=== PATIENT | female | born 1930 | race Caucasian/White ===

== ENCOUNTER 2018-08-01 21:03 | Emergency (ER) | payer MEDICARE ==
--- OUTSIDE RECORDS SUMMARY | 2018-08-01 21:17 | XMS REPORT ---
:1930 External Reference #:[id number] Author Organization [facility] Address [address] [address] Phone [phone] Care Team Providers Name Role Phone Piyush Busch MD Primary Care Physician Unavailable Payers Type Date Identification Numbers Payment Provider Subscriber Commercial Effective: Policy Number: [id number] [employer] Seema Moreira 2017 Group Number: [id number] [id number] PayID: [id number] [place] [address] Problems Date Description Provider Status Onset: Hypercholesterolemia Active Onset: Irritable bowel syndrome Active Onset: H/O: depression Active Onset: Benign hypertension Active Onset: Acid reflux Active Onset: Anemia Active Onset: Contact dermatitis Active Onset: 10/18/2015 Nausea Richard Blancas MD Active Onset: 10/18/2015 Abdominal pain Richard Blancas MD Active Onset: 12/01/2015 Minimal cognitive impairment Piyush Busch Active MD Onset: 12/01/2015 Other cerebrovascular disease Piyush Busch Active Onset: 01/07/2016 Essential hypertension Piyush Busch Active MD Onset: 01/07/2016 Major depressive disorder, single Piyush Busch, Active episode, unspecified MD Onset: 01/07/2016 Cobalamin deficiency Piyush Busch Active Onset: 07/27/2016 Hyperlipidemia Piyush Busch Active Onset: 11/13/2016 Urinary tract infectious disease Richard Blancas MD Active Onset: 12/14/2016 Vitamin D deficiency Piyush Busch Active Onset: 12/14/2016 Adjustment disorder with depressed Piyush Busch Active mood MD Onset: 09/06/2017 Dyspnea Piyush Busch Active MD Onset: 12/06/2017 Hypothyroidism Piyush Busch Active MD Onset: 07/12/2018 Chronic obstructive lung disease Piyush Busch Active Onset: 07/12/2018 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 Allergies, Adverse Reactions, Alerts Date Description Reaction Status Severity Comments 10/13/2014 Flu Virus Vaccine active Nausea, cold sweats, diarrhea 12/14/2016 Aricept active irritability Medications Medication Date Status Form Strength Qnty SIG Indications Ordering Provider Lidocaine Active Patches 5% 30unit apply 1 B02.29 Stepkovitc 018 s patch to Piyush gifford MD area 12 hours on /12 hours off Duloxetine HCL Active Caps DR 60mg 90caps Take 1 F43.21 Stepkovitc 018 Part Capsule By Piyush gifford AT MD Eve Bedtime Atorvastatin Active Tablets 10mg 90tabs Take 1 I67.89 Stepkovitc Calcium 018 Tablet By Piyush gifford MD Every Day E78.5 Clopidogrel 05/09/2018 Active Tablets 75mg 90tabs Take 1 I67.89 Jo-Ann, Bisulfate Tablet By Piyush Prado MD Mouth Every Day E78.5 Mirtazapine 05/09/2018 Active Tablets 15mg 30tabs Take 1/2 F32.9 Jo-Ann, Tablet By Piyush Prado MD Mouth AT Bedtime F43.21 Quetiapine 03/02/2018 Active Tablets 25mg 120tabs take one F03.91 Jo-Ann, Fumarate tablet in Piyush Prado MD the morning, one tablet at noon, one tablet at bedtime, can use one a needed Diclofenac 02/27/2018 Active Gel 1% 1tube apply 4g to Jo-Ann Sodium the Piyush Prado MD affected area four times a day as needed Breo Ellipta 09/06/2017 Active Aerosol 100-2 60units 1 puff J44.9 Jo-Ann, 5mcg/ daily Piyush Prado MD Inh Proair HFA 09/06/2017 Active Aerosol 108(9 1units 1-2 puffs J44.9 Jo-Ann, 0Base q4 hour as Piyush Prado MD ) needed mcg/A ct Ferrous 12/14/2016 Active Tablets 325(6 90tabs 1 by mouth D64.9 Jo-Ann, Sulfate DR 5Fe) every day Piyush Prado MD mg Lisinopril 12/14/2016 Active Tablets 10mg 90tabs take 1 I10 Jo-Ann , tablet by Piyush Prado MD mouth every day Vitamin D-3 01/07/2016 Active Capsules 1000U 30caps 1 by mouth E55.9 Jo-Ann, nit every day Piyush Prado MD Cyanocobalamin 01/07/2016 Active Solution 1000m 450ml 1 D51.9 Jo-Ann cg/ML milliliters Piyush Prado MD intramuscul ar every month You Have A 03/20/2018 Hx you can not F03.91 Jo-Ann Memory Problem - live alone Piyush Prado MD And Need Help 05/09/2018 Cephalexin 03/05/2018 Hx Capsules 500mg 21caps 1 by mouth L03.90 Jo-Ann - 3 times a Piyush Prado MD 05/04/2018 day Seroquel 02/27/2018 Hx Tablets 25mg 30tabs take one Jo-Ann - tablet by Piyush Prado MD 02/27/2018 mouth at bedtime Quetiapine 02/27/2018 Hx Tablets 25mg 60tabs take 1/2 F03.91 Jo-Ann, Fumarate - tablet in Piyush Prado MD 03/02/2018 the morning and one tablet by mouth at bedtime, can use 1/2 tablet as needed for agitation Please Attend 12/06/2017 Hx [place], A Day Program - Piyush Prado MD AT [facility] 05/09/2018 Macrobid 11/13/2016 Hx Capsules 100mg 10caps 1 tab by Yonny, - mouth twice MD Richard 12/14/2016 a day for 5 days Amoxicillin 07/22/2016 Hx Tablets 500mg 30tabs 1 tab by Victorina Mittal, - mouth three M.D. 11/13/2016 times a day Abilify 05/13/2016 Hx Tablets 2mg 30tabs take one po F32.9 Jo-Ann, - daily Piyush Prado MD 12/14/2016 Amoxicillin 04/23/2016 Hx Tablets 500mg 30tabs 1 by mouth Felter, - every 8 MD Josh 04/24/2016 hours Remeron 04/19/2016 Hx Tablets 15mg 30tabs Take 1/2 F32.9 Jo-Ann, - Tablet By Piyush Prado MD 05/09/2018 Mouth AT Bedtime F43.21 Cymbalta 02/09/2016 - Hx Caps DR 60mg 90caps Take 1 F43.21 Jo-Ann, 05/09/2018 Part Capsule By Piyush Prado MD Mouth AT Bedtime Penicillin V 01/27/2016 - Hx Tablets 500mg 30tabs Take 1 K12.2 Eros Saleh Potassium 04/19/2016 tablet by Ag DAntonioOAntonio mouth three (3) times a day. Lipitor 01/07/2016 - Hx Tablets 10mg 90tabs Take 1 I67.89 Jo-Ann, 05/09/2018 Tablet By Piyush Prado MD Mouth Every Day E78.5 Lisinopril 12/01/2015 - Hx Tablets 5mg 60tabs take 2 by I10 Jo-Ann , 12/14/2016 mouth Piyush Prado MD every day Paxil 12/01/2015 - Hx Tablets 20mg 1 by mouth Jo-Ann, 12/01/2015 every day Piyush Prado MD Aricept 12/01/2015 - Hx Tablets 5mg 90tabs 1 by mouth G31.84 Jo-Ann, 11/13/2016 every day Piyush Prado MD Paroxetine HCL 12/01/2015 - Hx Tablets 10mg 60tabs 1 and 1/2 F32.9 [place], 02/10/2016 by mouth Piyush Prado MD every day for 2 weeks then take one every day for 2 weeks then take 1/2 tablet po daily for 2 weeks Cymbalta 12/01/2015 - Hx Caps DR 20mg 60caps take 2 by G31.84 Jo-Ann, 02/09/2016 Part mouth at Piyush Prado MD bedtime F32.9 Plavix 12/01/2015 - Hx Tablets 75mg 90tabs Take 1 Tablet I67.89 Jo-Ann, 05/09/2018 By Mouth Piyush Prado MD Every Day E78.5 Ondansetron HCL 10/18/2015 - Hx Tablets 4mg 20tabs 1 tab by Yonny, 12/01/2015 mouth three MD Richard times a day as needed for nausea and vomiting Cipro 09/16/2015 - Hx Tablets 500mg 20tabs 1 by mouth R10 Juan Manuel, 09/24/2015 twice a day .81 MD Josh 4 Flagyl 09/16/2015 - Hx Tablets 500mg 28tabs 1 by mouth R10 Juan Manuel, 09/24/2015 four times .81 MD Josh a day 4 Amoxicillin 08/28/2015 - Hx Tablets 500mg 30tabs 1 by mouth Juan Manuel, 09/04/2015 every 8 MD Josh hours Lipitor - Hx Tablets 30tabs 1 by mouth Unknown 12/01/2015 every day Paxil - Hx Tablets 30tabs 1 by mouth Unknown 12/01/2015 every day Lisinopril - Hx Tablets 30tabs 1 by mouth Unknown 12/01/2015 every day Hydrochlorothiazide - Hx Tablets 90tabs 1 by mouth Unknown 12/01/2015 every day Aspirin Ec - Hx Tablets DR 81mg OTC 1 by mouth Unknown 09/16/2015 every day Pepcid Complete - Hx 2 by mouth Unknown 08/28/2015 every day as needed Plavix - Hx Unknown 12/01/2015 Vital Signs Date Vital Result Comment 07/12/2018 Body Temperature 96.9 F Weight 99.12 lb Heart Rate 63 /min BP Systolic 122 mmHg BP Diastolic 80 mmHg Height 61 inches 5'1" O2 % BldC Oximetry 98 % BMI (Body Mass Index) 18.7 kg/m2 03/20/2018 Body Temperature 97.7 F Weight 102.00 lb Heart Rate 88 /min BP Systolic 102 mmHg BP Diastolic 60 mmHg Height 61 inches 5'1" O2 % BldC Oximetry 97 % BMI (Body Mass Index) 19.3 kg/m2 03/05/2018 Body Temperature 98.1 F Weight 102.00 lb Heart Rate 81 /min BP Systolic 120 mmHg BP Diastolic 70 mmHg Height 61 inches 5'1" O2 % BldC Oximetry 98 % BMI (Body Mass Index) 19.3 kg/m2 02/27/2018 Body Temperature 98.3 F Weight 102.00 lb Heart Rate 88 /min BP Systolic 140 mmHg BP Diastolic 80 mmHg Height 61 inches 5'1" O2 % BldC Oximetry 97 % BMI (Body Mass Index) 19.3 kg/m2 12/06/2017 Body Temperature 97.4 F Weight 104.38 lb Heart Rate 77 /min BP Systolic 122 mmHg BP Diastolic 70 mmHg Height 61 inches 5'1" O2 % BldC Oximetry 97 % BMI (Body Mass Index) 19.7 kg/m2 Urine Dipstick - Blood neg ph=5 SG=1.030 Urine Dipstick - Protein +1 Urine Dipstick - Glucose neg Urine Dipstick - Leukocytes +1 Right Visual Acuity Distance Dr Barakat 09/06/2017 Body Temperature 97.2 F Weight 102.25 lb Heart Rate 76 /min BP Systolic 128 mmHg BP Diastolic 78 mmHg Height 61 inches 5'1" O2 % BldC Oximetry 98 % BMI (Body Mass Index) 19.3 kg/m2 04/26/2017 Body Temperature 98.3 F Weight 98.25 lb Heart Rate 72 /min BP Systolic 104 mmHg BP Diastolic 80 mmHg Height 61 inches 5'1" O2 % BldC Oximetry 96 % BMI (Body Mass Index) 18.6 kg/m2 12/14/2016 Body Temperature 98.0 F Weight 102.00 lb Heart Rate 74 /min BP Systolic 120 mmHg BP Diastolic 84 mmHg Height 61 inches 5'1" O2 % BldC Oximetry 95 % BMI (Body Mass Index) 19.3 kg/m2 Urine Dipstick - Blood NEGATIVE PH 5 SG 1.030 Urine Dipstick - Protein 1+ Urine Dipstick - Glucose NEGATIVE Urine Dipstick - Leukocytes 1+ Left ear audiology results 25 db <25db loss at 500,2000,4000 >25db loss at 1000 Right ear audiology results 25 db <25db loss at 500,2000 >25db loss at 1000, 4000 11/13/2016 Body Temperature 98.5 F Respiratory Rate 18 /min 07/27/2016 Body Temperature 98.0 F Weight 103.25 lb Heart Rate 72 /min BP Systolic 150 mmHg BP Diastolic 76 mmHg Height 64 inches 5'4" BMI (Body Mass Index) 17.7 kg/m2 07/22/2016 Body Temperature 97.7 F Weight 95.00 lb Heart Rate 86 /min BP Systolic 120 mmHg BP Diastolic 76 mmHg Respiratory Rate 20 /min Height 64 inches 5'4" BMI (Body Mass Index) 16.3 kg/m2 04/23/2016 Weight 95.00 lb BP Systolic 122 mmHg BP Diastolic 76 mmHg Respiratory Rate 20 /min Height 64 inches 5'4" BMI (Body Mass Index) 16.3 kg/m2 04/19/2016 Body Temperature 97.7 F Weight 95.50 lb Heart Rate 100 /min BP Systolic 116 mmHg BP Diastolic 64 mmHg Height 64 inches 5'4" BMI (Body Mass Index) 16.4 kg/m2 02/10/2016 Body Temperature 97.4 F Weight 100.50 lb Heart Rate 92 /min BP Systolic 140 mmHg BP Diastolic 70 mmHg Height 64 inches 5'4" BMI (Body Mass Index) 17.2 kg/m2 01/27/2016 Body Temperature 97.6 F Weight 105.00 lb Heart Rate 73 /min BP Systolic 129 mmHg BP Diastolic 79 mmHg Respiratory Rate 16 /min Height 64 inches 5'4" BMI (Body Mass Index) 18.0 kg/m2 01/07/2016 Body Temperature 98.1 F Weight 104.00 lb Heart Rate 75 /min BP Systolic 128 mmHg BP Diastolic 70 mmHg Height 63.5 inches 5'3.50" O2 % BldC Oximetry 95 % BMI (Body Mass Index) 18.1 kg/m2 12/01/2015 Weight 105.25 lb Heart Rate 66 /min BP Systolic 122 mmHg BP Diastolic 80 mmHg Height 63.5 inches 5'3.50" O2 % BldC Oximetry 97 % BMI (Body Mass Index) 18.3 kg/m2 10/18/2015 Body Temperature 96.7 F Respiratory Rate 18 /min 09/16/2015 Body Temperature 97.0 F Heart Rate 76 /min BP Systolic 119 mmHg BP Diastolic 76 mmHg 08/28/2015 Body Temperature 97.6 F Heart Rate 68 /min BP Systolic 128 mmHg BP Diastolic 72 mmHg Respiratory Rate 20 /min Results Test Date Test Result H/L Range Note CBS W/Automated Diff 07/04/2018 White Blood Count 5.1 K/uL 3.1-10.7 1 Red Blood Count 3.82 M/uL Low 3.90-5.40 1 Hemoglobin 10.7 gm/dL Low 11.6-15.8 1 Hematocrit 34.6 % Low 36.0-46.1 1 Mean Cell Volume 90.6 fl 80.9-99.0 1 Mean Corpuscular HGB 28.0 pg 25.9-32.7 1 Mean Corpuscular HGB Conc 30.9 g/dL 30.8-34.3 1 Platelet Count 231 K/uL 155-360 1 Red Cell Distri Width SD 45.1 fl 3-47 1 Red Cell Distri Width %CV 14.2 % 11.7-14.4 1 Mean Platelet Volume 9.8 fL 8.9-12.4 1 Neut% 65.4 % 40.4-72.8 1 Lymph % 17.8 % Low 20.0-42.0 1 [place] % 8.8 % 4.3-13.2 1 Eo% 7.4 % High 0.0-6.6 1 Bas% 0.6 % 0.0-1.1 1 Neut# 3.34 K/uL 1.8-7.0 1 Lymph # 0.91 K/uL Low 1.0-4.0 1 [place] # 0.45 K/uL 0.3-0.9 1 Eos # 0.38 K/uL 0.0-0.5 1 Baso # 0.03 K/uL 0.0-0.1 1 Liver Function Tests 07/04/2018 Total Protein 7.2 g/dL 6.4-8.2 1 Albumin 3.2 g/dL Low 3.4-5.0 1 Globulin 4.0 g/dL 1.9-4.3 1 Alb/Glob 0.8 ratio 1 Bilirubin,Total 0.5 mg/dL 0.2-1.0 1 Bilirubin,Direct 0.2 mg/dL 0.0-0.2 1 Bilirubin,Indirect 0.3 mg/dL 0.0-0.9 1 Sgot/Ast 15 U/L 15-37 1 SGPT/Alt 18 U/L 12-78 1 Alkaline Phosphatase 108 U/L 45-117 1 Basic Metabolic Panel 07/04/2018 Glucose 82 mg/dL 74-106 1 BUN 19 mg/dL High 7-18 1 Creatinine 1.2 mg/dL 0.6-1.3 1 Glom Filtration Rate, Estimate 45 mL/min >60 1 If 55 mL/min >60 1, 2 BUN/Creat 15.8 ratio 1 Sodium 144 mmol/L 136-145 1 Potassium 4.1 mmol/L 3.5-5.1 1 Chloride 110 mmol/L High 98-107 1 Carbon Dioxide 29 mmol/L 21-32 1 Anion Gap 5 mEq/L Low 8-16 1 Calcium 8.6 mg/dL 8.5-10.1 1 LDL Cholesterol Profile 07/04/2018 Cholesterol 137 mg/dL <200 1, 3 Triglycerides 92 mg/dL <150 1, 4 HDL Cholesterol 58 mg/dL >40 1, 5 LDL-Cholesterol 61 mg/dL < 100 1, 6 Lipid Treatment 12/04/2017 Cholesterol 156 mg/dL 50-199 7 Triglycerides 107 mg/dL 30-200 7 HDL 43 mg/dL 35-85 7, 8 Chol/ HDL Ratio 3.6 ratio Low 3.7-5.6 7 VLDL 21 mg/dL 2-29 7 LDL (Calc) 91 mg/dL 20-99 7, 9 Alt 8 U/L 3-42 7 Ast 16 U/L 8-42 7 Basic (BMP) 12/04/2017 Sodium 144 mmol/L 135-146 7, 10 Potassium 4.4 mmol/L 3.5-5.2 7 Chloride# 109 mmol/L 97-110 7, 11 Carbon Dioxide 29 mmol/L 24-34 7 Glucose 98 mg/dL 70-105 7 BUN 15 mg/dL 6-26 7 Creatinine 1.1 mg/dL 0.5-1.4 7 Calcium 9.0 mg/dL 8.5-10.2 7 Non Deja Egfr 50 Low >60 7, 12 Deja Egfr 60 Low >60 7, 13 Anion Gap 6 mmol/L 5-15 7, 14 CBC With Auto Diff 12/04/2017 WBC 5.0 K/uL 4.1-11.0 7 RBC 3.83 M/uL Low 4.00-5.40 7 Hemoglobin 11.4 gm/dL Low 12.0-16.0 7 Hematocrit 33.3 % Low 36.0-47.0 7 MCV 87.1 fL 80.0-97.0 7 MCH 29.8 pg 27.0-32.0 7 MCHC 34.2 g/dL 32.0-36.0 7 RDW 13.9 % 11.5-14.5 7 PLT Count 182 K/ul 140-400 7 MPV 7.8 FL 7.1-10.7 7 Neutrophil 65.6 % 35.0-75.0 7 Lymphocyte 15.6 % Low 16.0-52.0 7 Monocyte 11.1 % High 2.0-10.0 7 Eosinophil 6.5 % High 0.0-5.0 7 Basophil 1.2 % 0.0-4.0 7 Abs Neutrophils 3.2 K/uL 2.1-8.0 7 Abs Lymphocytes 0.8 K/uL 0.8-5.5 7 Abs Monocytes 0.6 K/uL 0.1-1.0 7 Abs Eosinophils 0.3 K/uL 0.0-0.5 7 Abs Basophils 0.1 K/uL 0.0-0.3 7 Laboratory test finding 12/04/2017 TSH 3.07 uIU/mL 0.35-4.94 7 Vitamin B12 262 pg/mL 180-914 7 Vitamin D 25 Hydroxy 39 ng/mL 30-100 7, 15 Methylmalonic Acid 09/06/2017 Methylmalonic Acid 0.29 umol/L 16 Iron Panel 09/06/2017 Iron,Total @ 41 g/dL (35-150) Uibc @ 224 g/dL (130-375) Tibc @ 265 g/dL (250-450) % Saturation 15 % (12-50) Hepatic Function 09/06/2017 Total Protein 7.2 g/dL (6.4-8.2) Albumin 3.6 g/dL (3.2-4.5) Globulin 3.6 g/dL (2.7-4.3) Alb/Glob Ratio 1.0 RATIO Bilirubin,Total 0.4 mg/dL (0.0-1.0) Bilirubin,Conjugated 0.1 mg/dL (0.0-0.3) Bilirubin,Unconj. 0.3 mg/dL (0.0-0.7) Alkaline Phosphatase 91 U/L (45-117) Ast (Sgot) 15 U/L (11-39) Alt (SGPT) 17 U/L (12-78) CBC With Diff 09/06/2017 WBC 6.2 10*3/uL (4.1-11.0) RBC 3.96 10*6/uL Low (4.00-5.40) HGB 11.3 g/dL Low (12.0-16.0) HCT 34.4 % Low (36.0-47.0) MCV 86.9 fL (80.0-95.0) MCH 28.6 pg (27.0-32.0) MCHC 32.9 g/dL (32.0-36.0) RDW 14.4 % (10.5-14.5) PLT 201 10*3/uL (150-450) MPV 8.4 fL (7.1-10.7) Neut % 64.2 % (35.0-75.0) Lymph % 18.8 % (16.0-52.0) [place] % 13.2 % High (0.0-8.0) Eos % 2.8 % (0.0-5.0) Baso % 1.0 % (0.0-4.0) Neut # 4.0 10*3/uL (1.8-7.7) Lymph # 1.2 10*3/uL (1.2-4.8) [place] # 0.8 10*3/uL (0.0-0.8) Eos # 0.2 10*3/uL (0.0-0.5) Baso # 0.1 10*3/uL (0.0-0.2) Laboratory test finding 09/06/2017 Ferritin @ 49 ng/mL (8-252) BMP (Basic) 09/06/2017 Sodium 144 mmol/L (136-145) Potassium 4.6 mmol/L (3.6-5.2) Chloride 110 mmol/L High (100-108) Co2 26 mmol/L (22-31) Anion Gap 8 mmol/L (7-16) Urea Nitrogen 20 mg/dL (7-24) Creatinine 1.20 mg/dL High (0.60-1.00) BUN/Creat Ratio 16.7 RATIO (10.0-20.0) Glucose 74 mg/dL (70-99) Calcium 8.8 mg/dL (8.4-10.2) GFR 43 ml/min/1.73m2 Low (>59) GFR ( Amer) 52 ml/min/1.73m2 Low (>59) GFR Interpretation <SEE NOTE> 17 Laboratory test finding 09/06/2017 Vitamin B12 @ 338 pg/mL (193-986) Iron Panel 04/26/2017 Iron, Total 83 g/dL 50-170 Transferrin 216.0 mg/dL 203.0-362.0 Tibc (calc) 302 g/dL 261-478 % Iron Saturation 27.4 % 13.0-45.0 Laboratory test finding 04/26/2017 Ferritin 50.3 ng/ml 11.0-306.0 Vitamin B12 272 pg/mL 180-914 1 Urinalysis DIP (In-House) 12/14/2016 Z#Color maria ines Z#Appearance sl cloudy Urine,Leukocytes 1+ Nitrite negative Urobilinogen negative Urine,Protein 1+ Z#PH Urine 5 Z#Blood, Urine negative Z#Specific [place] 1.030 Z#Ketones Urine negative Z#Bili,Urine negative Z#Glu Urine negative Lipid Treatment 12/05/2016 Cholesterol 160 mg/dL 50-199 Triglycerides 158 mg/dL 30-200 HDL 45 mg/dL 35-85 18 Chol/ HDL Ratio 3.5 ratio Low 3.7-5.6 VLDL 32 mg/dL High 2-29 LDL (Calc) 83 mg/dL 20-99 19 Alt 7 U/L 3-42 Ast 15 U/L 8-42 Basic (BMP) 12/05/2016 Sodium 144 mmol/L 135-146 20 Potassium 3.7 mmol/L 3.5-5.2 Chloride# 107 mmol/L 97-110 21 Carbon Dioxide 28 mmol/L 24-34 Glucose 100 mg/dL 70-105 BUN 14 mg/dL 6-26 Creatinine 1.3 mg/dL 0.5-1.4 Calcium 9.3 mg/dL 8.5-10.2 Non Deja Egfr 41 Low >60 22 Deja Egfr 49 Low >60 23 Anion Gap 13 mmol/L 7-16 24 CBC With Auto Diff 12/05/2016 WBC 7.1 K/uL 4.1-11.0 RBC 4.18 M/uL 4.00-5.40 Hemoglobin 12.0 gm/dL 12.0-16.0 Hematocrit 36.4 % 36.0-47.0 MCV 87.0 fL 80.0-97.0 MCH 28.8 pg 27.0-32.0 MCHC 33.1 g/dL 32.0-36.0 RDW 14.3 % 11.5-14.5 PLT Count 233 K/ul 140-400 Neutrophil 66.1 % 35.0-75.0 Lymphocyte 17.6 % 16.0-52.0 Monocyte 10.0 % 2.0-10.0 Eosinophil 5.1 % High 0.0-5.0 Basophil 1.2 % 0.0-4.0 Abs Neutrophils 4.7 K/uL 2.1-8.0 Abs Lymphocytes 1.3 K/uL 0.8-5.5 Abs Monocytes 0.7 K/uL 0.1-1.0 Abs Eosinophils 0.4 K/uL 0.0-0.5 Abs Basophils 0.1 K/uL 0.0-0.3 Laboratory test finding 12/05/2016 TSH 2.24 uIU/mL 0.35-4.94 Free T4 0.89 ng/dL 0.70-1.48 Vitamin B12 277 pg/mL 180-914 Vit D,25 Hydroxy 43 ng/mL 31-100 Laboratory test finding 11/13/2016 Urine Culture SPECIMEN DESCRI> 25 CBC With Auto Diff 08/22/2016 WBC 5.3 K/uL 4.1-11.0 RBC 4.10 M/uL 4.00-5.40 Hemoglobin 11.6 gm/dL Low 12.0-16.0 Hematocrit 35.3 % Low 36.0-47.0 MCV 86.3 fL 80.0-97.0 MCH 28.4 pg 27.0-32.0 MCHC 32.9 g/dL 32.0-36.0 RDW 14.7 % High 11.5-14.5 PLT Count 225 K/ul 140-400 Neutrophil 58.7 % 35.0-75.0 Lymphocyte 21.6 % 16.0-52.0 Monocyte 13.1 % High 2.0-10.0 Eosinophil 5.6 % High 0.0-5.0 Basophil 1.0 % 0.0-4.0 Abs Neutrophils 3.1 K/uL 2.1-8.0 Abs Lymphocytes 1.1 K/uL 0.8-5.5 Abs Monocytes 0.7 K/uL 0.1-1.0 Abs Eosinophils 0.3 K/uL 0.0-0.5 Abs Basophils 0.1 K/uL 0.0-0.3 CBC With Auto Diff 07/27/2016 WBC 5.7 K/uL 4.1-11.0 RBC 3.91 M/uL Low 4.00-5.40 Hemoglobin 10.9 gm/dL Low 12.0-16.0 Hematocrit 33.0 % Low 36.0-47.0 MCV 84.2 fL 80.0-97.0 MCH 27.8 pg 27.0-32.0 MCHC 33.0 g/dL 32.0-36.0 RDW 14.1 % 11.5-14.5 PLT Count 203 K/ul 140-400 Neutrophil 70.0 % 35.0-75.0 Lymphocyte 14.8 % Low 16.0-52.0 Monocyte 9.3 % 2.0-10.0 Eosinophil 4.8 % 0.0-5.0 Basophil 1.1 % 0.0-4.0 Abs Neutrophils 4.0 K/uL 2.1-8.0 Abs Lymphocytes 0.8 K/uL 0.8-5.5 Abs Monocytes 0.5 K/uL 0.1-1.0 Abs Eosinophils 0.3 K/uL 0.0-0.5 Abs Basophils 0.1 K/uL 0.0-0.3 Basic (BMP) 07/27/2016 Sodium 141 mmol/L 134-142 Potassium 4.1 mmol/L 3.5-5.2 Chloride 108 mmol/L 97-109 Carbon Dioxide 31 mmol/L 24-34 Glucose 81 mg/dL 70-105 BUN 14 mg/dL 6-26 Creatinine 1.0 mg/dL 0.5-1.4 Calcium 9.3 mg/dL 8.5-10.2 Anion Gap 6 mmol/L 6-14 Non Deja Egfr 55 Low >60 26 Deja Egfr >60 >60 27 Hepatic Panel (LFT) 07/27/2016 Total Protein 6.6 g/dL 6.0-8.0 Albumin 3.6 g/dL 3.6-4.9 Total Bilirubin 0.6 mg/dL 0.1-1.3 Direct Bilirubin 0.1 mg/dL 0.0-0.4 Alkaline Phosphatase 86 U/L 24-140 Alt 11 U/L 3-42 Ast 17 U/L 8-42 Laboratory test finding 07/27/2016 Vit D,25 Hydroxy 43 ng/mL 31-100 Vitamin B12 322 pg/mL 180-914 TSH 1.63 uIU/mL 0.35-4.94 Ferritin 19.2 ng/ml 11.0-306.0 Iron Panel 07/27/2016 Iron, Total 101 g/dL 50-170 Transferrin 235.7 mg/dL 203.0-362.0 Tibc (calc) 330 g/dL 261-478 % Iron Saturation 30.6 % 13.0-45.0 Laboratory test 12/10/2015 Methylmalonic Acid (S) 0.21 umol/L (0.00-0.40 ) 28 finding Laboratory test 12/10/2015 Folate >24.2 ng/ml 5.9-24.8 finding TSH 1.64 uIU/mL 0.35-4.94 CBC With Auto Diff 12/10/2015 WBC 5.3 K/uL 4.1-11.0 RBC 4.12 M/uL 4.00-5.40 Hemoglobin 11.7 gm/dL Low 12.0-16.0 Hematocrit 36.2 % 36.0-47.0 MCV 87.8 fL 80.0-97.0 MCH 28.4 pg 27.0-32.0 MCHC 32.4 g/dL 32.0-36.0 RDW 13.8 % 11.5-14.5 PLT Count 214 K/ul 140-400 Neutrophil 63.1 % 35.0-75.0 Lymphocyte 21.5 % 16.0-52.0 Monocyte 11.1 % High 2.0-10.0 Eosinophil 3.5 % 0.0-5.0 Basophil 0.8 % 0.0-4.0 Abs Neutrophils 3.3 K/uL 2.1-8.0 Abs Lymphocytes 1.1 K/uL 0.8-5.5 Abmon 0.6 K/uL 0.1-1.0 Abs Eosinophils 0.2 K/uL 0.0-0.5 Abs Basophils 0.0 K/uL 0.0-0.3 Laboratory test finding 12/10/2015 Vitamin B12 434 pg/mL 180-914 Basic (BMP) 12/10/2015 Sodium 139 mmol/L 134-142 Potassium 4.1 mmol/L 3.5-5.2 Chloride 104 mmol/L 97-109 Carbon Dioxide 27 mmol/L 24-34 Glucose 96 mg/dL 70-105 BUN 15 mg/dL 6-26 Creatinine 1.1 mg/dL 0.5-1.4 Calcium 9.0 mg/dL 8.5-10.2 Anion Gap 12 mmol/L 6-14 Non Deja Egfr 49 Low >60 29 Deja Egfr 59 Low >60 30 Lipid Treatment 12/10/2015 Cholesterol 209 mg/dL High 50-199 Triglycerides 120 mg/dL 30-200 HDL 49 mg/dL 35-85 31 Chol/ HDL Ratio 4.3 ratio 3.7-5.6 VLDL 24 mg/dL 2-29 LDL (Calc) 136 mg/dL High 20-99 32 Alt 10 U/L 3-42 Ast 16 U/L 8-42 Laboratory test finding 09/16/2015 Urine Culture SPECIMEN DESCRI> 33 1 E78.5, I10 2 Note: Persistent reduction for 3 months or more in an eGFR <60 mL/min/1.73 m2 defines CKD. Patients with eGFR values >/=60 mL/min/1.73 m2 may also have CKD if evidence of persistent proteinuria is present. The original MDRD equation for estimated GFR is not valid for patients less than 18 years of age. Additional information may be found at [email or web address]. 3 Reference Guidelines*: Desirable: ........... < 200 mg/dL Borderline High: ..... 200-239 mg/dL High: ................ >=240 mg/dL * The National Cholesterol Education Program (NCEP) 4 Reference Guidelines*: Normal: ............. < 150 mg/dL Borderline High: .... 150-199 mg/dL High: ............... 200-499 mg/dL Very High: .......... > 500 mg/dL * Source: National Cholesterol Education Program (NCEP) 5 Reference Guidelines*: Low HDL: ..... < 40 mg/dL Normal: ..... 40-60 mg/dL Desirable: ... > 60 mg/dL *The National Cholesterol Education Program(NCEP) 6 Reference Guidelines*: Optimal:........... <100 mg/dL Near Optimal....... 100-129 mg/dL Borderline High.... 130-159 mg/dL High............... 160-189 mg/dL Very High.......... >=190 mg/dL * Source: National Cholesterol Education Program (NCEP) 7 patient broke fast 8 Per NCEP ATP III Guidelines: Results lower than 40 mg/dL are suggestive of increased risk for coronary artery disease. Results > or=to 60 mg/dL are considered a negative risk factor. 9 Per NCEP ATP III Guidelines: Normal Population <130 Patients with medical conditions: CHD/DM Optimal: <100 Borderline high: 130-159 High: 160-189 Very high: >189 10 Updated reference range on new analyzer 11 Updated reference range on new analyzer 12 Concerning GFR Guidelines: Normal function or mild renal disease, if clinically at risk: >/=60 mL/min Moderately decreased: 30-59 Severely decreased: 15-29 Renal failure: <15 Glomerular Filtration Rate (GFR) is estimated based on the MDRD equation, which assumes a steady state for creatinine as recommended by the National Kidney Disease Education Program in conjunction with the National Institutes of Health and the National Kidney Foundation. Clinical conditions in which it may be necessary to measure GFR by using clearance methods include extremes of age and body size, severe malnutrition or obesity, diseases of skeletal muscle, paraplegia or quadriplegia, vegetarian diet, rapidly changing kidney function, and calculation of the dose of potentially toxic drugs that are excreted by the kidneys. 13 Concerning GFR Guidelines for Americans: Normal function or mild renal disease, if clinically at risk: >/=60 mL/min Moderately decreased: 30-59 Severely decreased: 15-29 Renal failure: <15 14 Updated Reference Range 15 Clinical Guidelines for recommended serum 25(OH)Vitamin D Deficient at less than 20 ng/mL Insufficient at 20 to <30 ng/mL Sufficient at 30-100 ng/mL Toxicity at greater than 100 ng/mL 16 Reference range: 0.00 to 0.40 INTERPRETIVE INFORMATION: MMA Serum/Plasma, Vitamin B12 Status Test developed and characteristics determined by [facility]. See Compliance Statement B: [employer]/CS Performed by [facility], [address] [facility] [address] [email or web address], Ray rCum MD, Lab. Director 17 NORMAL KIDNEY FUNCTION OR MILD DISEASE - GFR >OR=60 CHRONIC KIDNEY DISEASE - GFR 15 - 59 RENAL FAILURE - GFR <15 Est. GFR calculation based on the MDRD study equation, which assumes a steady state for creatinine. Est. GFR should not be used for medication dosing. 18 Per NCEP ATP III Guidelines: Results lower than 40 mg/dL are suggestive of increased risk for coronary artery disease. Results > or=to 60 mg/dL are considered a negative risk factor. 19 Per NCEP ATP III Guidelines: Normal Population <130 Patients with medical conditions: CHD/DM Optimal: <100 Borderline high: 130-159 High: 160-189 Very high: >189 20 Updated reference range on new analyzer 21 Updated reference range on new analyzer 22 Concerning GFR Guidelines: Normal function or mild renal disease, if clinically at risk: >/=60 mL/min Moderately decreased: 30-59 Severely decreased: 15-29 Renal failure: <15 Glomerular Filtration Rate (GFR) is estimated based on the MDRD equation, which assumes a steady state for creatinine as recommended by the National Kidney Disease Education Program in conjunction with the National Institutes of Health and the National Kidney Foundation. Clinical conditions in which it may be necessary to measure GFR by using clearance methods include extremes of age and body size, severe malnutrition or obesity, diseases of skeletal muscle, paraplegia or quadriplegia, vegetarian diet, rapidly changing kidney function, and calculation of the dose of potentially toxic drugs that are excreted by the kidneys. 23 Concerning GFR Guidelines for Americans: Normal function or mild renal disease, if clinically at risk: >/=60 mL/min Moderately decreased: 30-59 Severely decreased: 15-29 Renal failure: <15 24 Updated reference range on new analyzer 25 SPECIMEN DESCRIPTION MIDSTREAM URINE,CLEAN CATCH CULTURE RESULTS MIXED UROGENITAL SHEREEN; PLEASE SUBMIT A NEW SPEC IMEN IF CLINICALLY INDICATED. REPORT STATUS FINAL 11/14/2016 26 Concerning GFR Guidelines: Normal function or mild renal disease, if clinically at risk: >/=60 mL/min Moderately decreased: 30-59 Severely decreased: 15-29 Renal failure: <15 Glomerular Filtration Rate (GFR) is estimated based on the MDRD equation, which assumes a steady state for creatinine as recommended by the National Kidney Disease Education Program in conjunction with the National Institutes of Health and the National Kidney Foundation. Clinical conditions in which it may be necessary to measure GFR by using clearance methods include extremes of age and body size, severe malnutrition or obesity, diseases of skeletal muscle, paraplegia or quadriplegia, vegetarian diet, rapidly changing kidney function, and calculation of the dose of potentially toxic drugs that are excreted by the kidneys. 27 Concerning GFR Guidelines for Americans: Normal function or mild renal disease, if clinically at risk: >/=60 mL/min Moderately decreased: 30-59 Severely decreased: 15-29 Renal failure: <15 28 PLEASE NOTE: METHOD IS LC/MS/MS Unless otherwise specified, testing performed by [facility] [address] [place] [id number] 29 Concerning GFR Guidelines: Normal function or mild renal disease, if clinically at risk: >/=60 mL/min Moderately decreased: 30-59 Severely decreased: 15-29 Renal failure: <15 Glomerular Filtration Rate (GFR) is estimated based on the MDRD equation, which assumes a steady state for creatinine as recommended by the National Kidney Disease Education Program in conjunction with the National Institutes of Health and the National Kidney Foundation. Clinical conditions in which it may be necessary to measure GFR by using clearance methods include extremes of age and body size, severe malnutrition or obesity, diseases of skeletal muscle, paraplegia or quadriplegia, vegetarian diet, rapidly changing kidney function, and calculation of the dose of potentially toxic drugs that are excreted by the kidneys. 30 Concerning GFR Guidelines for Americans: Normal function or mild renal disease, if clinically at risk: >/=60 mL/min Moderately decreased: 30-59 Severely decreased: 15-29 Renal failure: <15 31 Per NCEP ATP III Guidelines: Results lower than 40 mg/dL are suggestive of increased risk for coronary artery disease. Results > or=to 60 mg/dL are considered a negative risk factor. 32 Per NCEP ATP III Guidelines: Normal Population <130 Patients with medical conditions: CHD/DM Optimal: <100 Borderline high: 130-159 High: 160-189 Very high: >189 33 SPECIMEN DESCRIPTION MIDSTREAM URINE,CLEAN CATCH CULTURE RESULTS MIXED UROGENITAL SHEREEN; PLEASE SUBMIT A NEW SPEC IMEN IF CLINICALLY INDICATED. REPORT STATUS FINAL 09/18/2015 Procedures Date CPT Code Description Status 12/06/2017 76806 Electrocardiogram Complete Completed 09/06/2017 41426 Spirometry /PFT W/O Bronchodialator Completed 12/14/2016 22518 Electrocardiogram Complete Completed 12/14/2016 26943 Screening Hearing Test Completed Encounters Type Date Location Provider CPT E/M Dx Office Visit 03/20/2018 2:15p [facility] [place] [address]88 F03.91 MD Eve Busch MD Office Visit 03/05/2018 3:15p [facility] [place] 72879 L03.90 MD Eve Busch MD F03.91 Office Visit 12/06/2017 3:30p [facility] G0439 Z00.00 MD Eve Busch MD E78.5 I10 D51.9 E55.9 F43.21 G31.84 I67.89 Office Visit 09/06/2017 4:45p Piyush Patterson 04369 D51.9 MD Eve Busch MD I10 E78.5 E55.9 G31.84 F43.21 R06.02 D64.9 I67.89 J44.9 Office Visit 04/26/2017 4:00p Piyush Patterson 24639 D51.9 MD Eve Busch MD I10 E78.5 E55.9 G31.84 F43.21 Office Visit 12/14/2016 2:30p Cami [facility] G0439 Z00.00 MD Eve Busch MD I10 E78.5 D51.9 E55.9 G31.84 F43.21 Office Visit 11/13/2016 9:55a [place] [address] R10.9 N39.0 Office Visit 07/27/2016 11:30a Jo-Ann Patterson [place] 86973 I10 MD Eve MD D51.9 G31.84 F32.9 I67.89 E78.5 E55.9 Office Visit 07/22/2016 2:05p [facility] Victorina Mckeon M.D. 09461 K08.89 Office Visit 04/23/2016 11:50a [place] [address] K12.2 Office Visit 04/19/2016 3:30p Jo-Ann Patterson, 76031 I10 MD Piyush Prado MD D51.9 G31.84 F32.9 Office Visit 02/10/2016 10:15a [facility] [place] 83833 R35.0 MD Eve Busch MD Office Visit 01/27/2016 3:20p [facility] Eros Luo, 05352 K12.2 D.O. Office Visit 01/07/2016 2:00p [facility] [place] 17324 I10 MD Eve Busch MD G31.84 I67.89 F32.9 D51.9 Office Visit 12/01/2015 4:15p [facility] [place] 98951 G31.84 MD Eve Busch MD I67.89 I10 F32.9 Office Visit 10/18/2015 2:25p [place] [address] R11.0 R10.9 Office Visit 09/16/2015 10:45a [place] [address] R10.814 Office Visit 08/28/2015 12:05p [facility] [place] [address] K12.2 Plan of Care Future Appointment(s):01/09/2019 4:00 pm - P[facility] MD at [facility] Eve Busch MD07/12/2018 - Piyush Busch MDE78.5 Hyperlipidemia, unspecifiedComments:we will monitorFollow up:physical November or December, she will need fasting LTP, BMP, CBC, TSH, VITD, VITB12 , needs to be arranged at the facility (check with the nurses 2 weeks prior) need to get paperwork from the [id number] Vitamin B12 deficiency anemia, unspecifiedComments:will f/uJ44.9 Chronic obstructive pulmonary disease, unspecifiedComments:PFTs showes severe obstruction, doing well , no wheezes tgnboO36.9 Anemia, unspecifiedComments:stable, we will f/uF03.91 Unspecified dementia with behavioral disturbanceComments:doing [id number] Essential (primary ) hypertensionGoals:At goal, continue current treatment plan.F43.21 Adjustment disorder with depressed moodComments:doing [id number] Wedge comprsn fx unsp lum vertebra, subs for fx w routn healComments:healed well, no pain
[2018-08-01] MEDS ORDERED: Mupirocin 2% OINT* TUBE TOPICAL ONE (21:24)
[2018-08-01] MEDS ORDERED: Amoxicillin/Clavulanate TAB* 875 MG PO ONE ×2 (21:24→21:25)
--- NOTE | 2018-08-01 21:31 | UC ---
Hand/Wrist HPI - HPI Summary HPI Summary: 88-year-old woman here with a chief complaint of erythema of the dorsum of right hand. One week ago patient was scratched by a dog on the right hand and she got a skin tear. This was cleansed and dressed without any sutures. Having dressing changes daily. The wound is healing. She is on Plavix and there's been some erythema in the area. Tonight dressing was changed and Neosporin was applied. There was increased area of erythema that extended into the base of the fingers. There is no drainage to the wound does not actively bleeding. - History Of Current Complaint Stated Complaint: RIGHT HAND SKIN CONCERN Time Seen by Provider: 08/01/18 21:14 PMH/Surg Hx/FS Hx/Imm Hx Previously Healthy: Yes - Family History Known Family History: Positive: None - Social History Alcohol Use: None Substance Use Type: None Have You Smoked in the Last Year: No Review of Systems Constitutional: Negative Skin: Other - see hpi Eyes: Negative ENT: Negative Respiratory: Negative Cardiovascular: Negative Gastrointestinal: Negative Motor: Negative Neurovascular: Negative Musculoskeletal: Negative Neurological: Negative Psychological: Negative Is Patient Immunocompromised?: No All Other Systems Reviewed And Are Negative: Yes Physical Exam Triage Information Reviewed: Yes Appearance: Well-Appearing, No Pain Distress, Well-Nourished Vital Signs Reviewed: Yes Eye Exam: Normal Eyes: Positive: Conjunctiva Clear Neck exam: Normal Neck: Positive: Supple Respiratory: Positive: No respiratory distress Musculoskeletal Exam: Normal Musculoskeletal: Positive: Strength Intact, ROM Intact Neurological Exam: Normal Neurological: Positive: Alert, Muscle Tone Normal Psychological Exam: Normal Psychological: Positive: Normal Response To Family Skin: Positive: Other - The right hand has a flap. There is no pus drainage. There is ecchymosis around the wound that spreads proximally on the dorsum to just proximal to the wrist. The same ecchymosis is spread over the knuckles. It's mildly warm to touch. Hand/Wrist Course/Dx - Course Course Of Treatment: Because of the spreading ecchymosis may be due to a blood vessel it's broken under the skin. The patient is on Plavix. Another possible concern would be a cellulitis. Neosporin was applied just prior to the spread of the ecchymosis therefore neomycin contacts dermatitis could contribute. 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 Her overall plan is to clean the wound which was done in clinic Then putAntonio Chamberlain on it and start the patient on Augmentin. Patient will follow up with her primary care doctor if the rash spreads or she starts to get sick with fever patient will need to be reevaluated right away. This was all discussed with the patient and her daughter. - Differential Dx/Diagnosis Provider Diagnoses: RIGHT HAND ECCYMOSIS Discharge - Sign-Out/Discharge Documenting (check all that apply): Patient Departure All imaging exams completed and their final reports reviewed: No Studies - Discharge Plan Condition: Stable Disposition: HOME Prescriptions: Amoxicillin/Clavulanate TAB* [Augmentin TAB 875*] 875 mg PO BID #18 tab Mupirocin 1 applic TOPICAL BID #22 gm Patient Education Materials: Acute Rash (ED), Cellulitis (ED) Referrals: Piyush Busch MD [Primary Care Provider] - Additional Instructions: FOLLOW UP WITH YOUR DOCTOR IF NOT COMPLETELY IMPROVED. GET RECHECKED FOR ANY WORSENING OF YOUR CONDITION; SPREAD OF THE RASH, FEVER, YOU FEEL ILL OR QUESTIONS OR CONCERNS. - Billing Disposition and Condition Condition: STABLE Disposition: Home
[2018-08-01 21:45] VITALS: BP 135/81
== END 2018-08-01 21:56 | disposition home or self-care (01) ==
LOC: UCCORT 21:03
DX: R23.8 Other skin changes (principal)
CPT/HCPCS: 99203; A9270-GY; G0463

== ENCOUNTER 2019-03-08 18:07 | Emergency (ER) | payer MEDICARE, OTHER ==
[2019-03-08 18:38] VITALS: BP 128/73
--- NOTE | 2019-03-08 18:41 | UC ---
Respiratory Complaint HPI - HPI Summary HPI Summary: L WRIST: COPD: COUGH , FOR THREE DAYS.PRODUCTIVE COUGH, WHEEZING AND INCREASED SOB. WEAKNESS. DENIES FEVER OR CHILLS. NO SORE THROAT OR EAR PAIN. NO N/V/D. ALSO LEFT WRIST PAIN , REDNESS AND SWELLING. NO RECALL OF INJURY. Inhaler: - History of Current Complaint Chief Complaint: UCRespiratory Stated Complaint: CONGESTION,COUGH Time Seen by Provider: 03/08/19 18:33 Pain Intensity: 0 - Allergies/Home Medications Allergies/Adverse Reactions: Allergies Allergy/AdvReac Type Severity Reaction Status Date / Time No Known Allergies Allergy Verified 03/08/19 18:23 Home Medications: Home Medications Albuterol HFA INHALER* [Ventolin HFA Inhaler*] 2 puff INH Q6H PRN 03/08/19 [ History Confirmed 03/08/19] Daily Inhaler ? Name DAILY 03/08/19 [History] PMH/Surg Hx/FS Hx/Imm Hx Cardiovascular History: Hypertension, Other - stroke Respiratory History: COPD - Surgical History Surgical History: None - Family History Known Family History: Positive: None - Social History Alcohol Use: None Substance Use Type: None Smoking Status (MU): Former Smoker Type: Cigarettes Have You Smoked in the Last Year: No When Did the Patient Quit Smoking/Using Tobacco: 2002 Physical Exam Appearance: Well-Appearing Vital Signs: Initial Vital Signs Temp 99.6 F 03/08/19 18:28 Pulse 80 03/08/19 18:28 Resp 36 03/08/19 18:28 BP 128/73 03/08/19 18:28 Pulse Ox 97 03/08/19 18:28 Respiratory: Positive: Crackles - RLL Respiratory Course/Dx - Course Course Of Treatment: COPD EXCACERBATION:Has known COPD and started wheezing 6 days ago. Lives at assisted living facility and was not being given BREO or Albuterol. She is stable at this point and vitals are WNL. No signs of acute confusion and mother reports her affect is baseline. Given respiratory rate and high risk pt. will tx for possible pneumonia and copd exacerbation. L WRIST PAIN: Due to pt's memory issues she does not recall if she injured it or not. On exam it is warm, somewhat tender and slightly swollen. FROM. XRAY : - Differential Dx/Diagnosis Provider Diagnosis: COPD exacerbation Discharge - Sign-Out/Discharge Documenting (check all that apply): Patient Departure All imaging exams completed and their final reports reviewed: No - Discharge Plan Condition: Stable Disposition: HOME Prescriptions: Albuterol HFA INHALER* [Ventolin HFA Inhaler*] 2 puff INH Q4H PRN #1 mdi PRN Reason: Wheezing Azithromycin TAB* [Zithromax TAB (Z-FABIOLA) 250 mg #6 tabs] 2 tab PO .TODAY, THEN 1 DAILY #1 fabiola Fluticasone/Vilanterol MDI(NF) [Breo Ellipta MDI (NF)] 1 puff INH DAILY #1 mdi predniSONE [Prednisone 20 MG TAB] 20 mg PO DAILY 5 Days #5 tablet Patient Education Materials: COPD (Chronic Obstructive Pulmonary Disease) (ED) Referrals: Piyush Busch MD [Primary Care Provider] - - Billing Disposition and Condition Condition: STABLE Disposition: Home
[2019-03-08] MEDS ORDERED: Albuterol/Ipratropium NEB.SOL* Albuterol 2.5 MG/Ipratropium 0.5 MG 3 ML INH ONE (19:14)
--- NOTE | 2019-03-09 10:43 | UC ---
- Progress Note Progress Note: official xray read is negative for wrist fracture Course/Dx - Diagnoses Provider Diagnoses: COPD exacerbation Discharge - Sign-Out/Discharge Documenting (check all that apply): Post-Discharge Follow Up All imaging exams completed and their final reports reviewed: Yes - Discharge Plan Condition: Stable Disposition: HOME Prescriptions: Albuterol HFA INHALER* [Ventolin HFA Inhaler*] 2 puff INH Q4H PRN #1 mdi PRN Reason: Wheezing Azithromycin TAB* [Zithromax TAB (Z-FABIOLA) 250 mg #6 tabs] 2 tab PO .TODAY, THEN 1 DAILY #1 fabiola Fluticasone/Vilanterol MDI(NF) [Breo Ellipta MDI (NF)] 1 puff INH DAILY #1 mdi predniSONE [Prednisone 20 MG TAB] 20 mg PO DAILY 5 Days #5 tablet Patient Education Materials: COPD (Chronic Obstructive Pulmonary Disease) (ED) Referrals: Jo-Ann VIRK,Piyush [Primary Care Provider] - Additional Instructions: Please follow up with your primary care provider and let them know you were here today - Billing Disposition and Condition Condition: STABLE Disposition: Home
== END 2019-03-08 19:50 | disposition home or self-care (01) ==
LOC: UCCORT 18:07
DX: J44.1 Chronic obstructive pulmonary disease with (acute) exacerbation (principal); M25.432 Effusion, left wrist; M25.532 Pain in left wrist; M85.832 Other specified disorders of bone density and structure, left forearm; I10 Essential (primary) hypertension; Z87.891 Personal history of nicotine dependence; Z86.73 Personal history of transient ischemic attack (TIA), and cerebral infarction without residual deficits
CPT/HCPCS: 99212; A9270-GY; G0463

== ENCOUNTER 2019-08-05 11:42 | Emergency (ER) | payer MEDICARE, OTHER ==
[2019-08-05 11:59] VITALS: BP 121/76
--- NOTE | 2019-08-05 12:07 | UC ---
UC General HPI - HPI Summary HPI Summary: 89-year-old woman comes in with a chief complaint of shortness of breath. It's been going on for couple of weeks now. Shortness of breath gets worse with any kind of activity. When she lays down flat at night she does not get more short of breath. No pedal edema or calf swelling or tenderness. No complaint of any chest pain. In the past the patient's been treating with inhalers for the same symptoms and got better. Has not had inhalers recently. No fevers no chest congestion. - History of Current Complaint Chief Complaint: UCRespiratory Stated Complaint: SOB W/EXERTION Time Seen by Provider: 08/05/19 11:58 Pain Intensity: 0 - Allergy/Home Medications Allergies/Adverse Reactions: Allergies Allergy/AdvReac Type Severity Reaction Status Date / Time Influenza Virus Vaccines Allergy Shortness Verified 08/05/19 11:53 of Breath PMH/Surg Hx/FS Hx/Imm Hx Previously Healthy: Yes Endocrine History: Dyslipidemia Cardiovascular History: Hypertension Respiratory History: COPD - Surgical History Surgical History: None - Family History Known Family History: Positive: None - Social History Alcohol Use: None Substance Use Type: None Smoking Status (MU): Former Smoker Type: Cigarettes Have You Smoked in the Last Year: No When Did the Patient Quit Smoking/Using Tobacco: 2002 Review of Systems All Other Systems Reviewed And Are Negative: Yes Constitutional: Positive: Other - SEE HPI Skin: Positive: Negative Eyes: Positive: Negative ENT: Positive: Nasal Discharge - INTERMITTENT Respiratory: Positive: Shortness Of Breath, Other - SEE HPI Cardiovascular: Positive: Negative Gastrointestinal: Positive: Negative Motor: Positive: Negative Neurovascular: Positive: Negative Musculoskeletal: Negative: Calf Tenderness, Edema Neurological: Positive: Negative Psychological: Positive: Negative Is Patient Immunocompromised?: No Physical Exam Triage Information Reviewed: Yes Appearance: Well-Appearing, No Pain Distress, Well-Nourished Vital Signs: Initial Vital Signs Temp 98.0 F 08/05/19 11:50 Pulse 81 08/05/19 11:50 Resp 26 08/05/19 11:50 BP 121/76 08/05/19 11:50 Pulse Ox 98 08/05/19 11:50 Vital Signs Reviewed: Yes Eye Exam: Normal Eyes: Positive: Conjunctiva Clear ENT: Negative: Nasal congestion Neck: Positive: Supple Respiratory: Positive: No respiratory distress, Wheezing - B/L Cardiovascular: Positive: RRR Musculoskeletal: Positive: Strength Intact, ROM Intact, No Edema - NO CALF TENDERNESS Neurological: Positive: Alert, Muscle Tone Normal Psychological: Positive: Normal Response To Family, Age Appropriate Behavior Skin Exam: Normal Diagnostics - EKG Cardiac Rate: NL - AT 1157 Cardiac Rhythm: Sinus: Normal - 81BPM Ectopy: None - RBBB AND LAFB, NO PRIOR EKG FOR COMPARISON Course/Dx - Course Course Of Treatment: Mud Plant Operator: Sveta Villalobos S, ([id number]) Metal Miner: LIBBY (JENNIFERANCE) Report Date: 08/05/2019 12:16:00 Report Status: Final Start of Report Content Patient Name: ASHLEY KENDRICK Medical Record#: [id number] Ordering Physician: Caleb Tesfaye MD Acct.#: [id number] : 06/1930 Age: 89 Sex: F Location: [facility] Exam Date: 08/05/191215 ADM Status: REG ER Order Information: CHEST PA LAT 2 VWS Accession Number: [id number] CPT: 79641 Indication: Shortness of breath, wheezing. 2 views of the chest including dual energy PA views demonstrate no mediastinal shift. Lung tucker show no pleural fluid, pneumonia or pneumothorax. There may be chronic interstitial disease present. IMPRESSION: No active cardiopulmonary disease is noted. < Electronically signed by Sveta Villalobos MD in [facility]> 08/05/19 1244 Dictated By: Sveta Villalobos MD Dictated Date/Time: 08/05/19 1242 Transcribed Date/Time: 08/05/19 124 Copy to: CC:Piyush Busch MD; Caleb Tesfaye MD Imaging - [facility] Imaging - [facility] Imaging - [facility] [address] [facility] [address] [place], [place] [id number] [place] [id number] [place] [address] ph ([phone]) ph ([phone]) ph ([phone]) End of Report Content I discussed the EKG, vital signs, and chest x-ray with the patient and her daughter. After one breathing treatment patient's wheezing went away. However since she started ambulating and she became short of breath. I recommended at that time that she go to the emergency department for further evaluation and care. The patient declined. And clinic he gave her prednisone 40 mg by mouth and a second nebulizer treatment. Discharged with the same recommendation of getting further evaluation in the emergency department. - Diagnoses Provider Diagnosis: COPD exacerbation Discharge ED - Sign-Out/Discharge Documenting (check all that apply): Patient Departure All imaging exams completed and their final reports reviewed: Yes - Discharge Plan Condition: Stable Disposition: HOME-RECOMMEND TO ED Prescriptions: Albuterol/Ipratropium NEB.DEISI* [Duoneb (Albuterol 2.5 MG/Ipratropium 0.5 MG)] 1 neb INH Q6H #20 neb.deisi predniSONE TAB* [Deltasone 20 MG TAB*] 40 mg PO DAILY #8 tab Patient Education Materials: COPD (Chronic Obstructive Pulmonary Disease) (ED) Referrals: Jo-Ann VIRK,Piyush [Primary Care Provider] - Additional Instructions: GO DIRECTLY TO THE EMERGENCY DEPARTMENT FOR FURTHER EVALUATION AND CARE. FOLLOW UP WITH YOUR DOCTOR IN THE NEXT 1-2 DAYS. - Billing Disposition and Condition Condition: STABLE Disposition: Home-Recommend to ED
[2019-08-05] MEDS ORDERED: Albuterol/Ipratropium NEB.SOL* Albuterol 2.5 MG/Ipratropium 0.5 MG 3 ML INH ONE (12:28)
[2019-08-05] MEDS ORDERED: predniSONE TAB* 20 MG PO ONE (13:05)
[2019-08-05] MEDS ORDERED: Albuterol 2.5 MG/3 ML NEB.SOL* (0.083%) INH ONE (13:10)
== END 2019-08-05 13:35 | disposition home health service (06) ==
LOC: UCCORT 11:42
DX: J44.1 Chronic obstructive pulmonary disease with (acute) exacerbation (principal); I45.2 Bifascicular block; I10 Essential (primary) hypertension; Z88.7 Allergy status to serum and vaccine; Z87.891 Personal history of nicotine dependence
CPT/HCPCS: 71046; 93005; 99213; A9270-GY; G0463; J7512

== ENCOUNTER 2019-09-25 18:31 | Emergency (ER) | payer MEDICARE, OTHER ==
[2019-09-25 18:55] VITALS: BP 116/56
[2019-09-25] MEDS ORDERED: Ipratropium 0.5MG/2.5ML NEB* 0.5 MG/2.5 ML NEB.SOLN INH ONE (19:02)
[2019-09-25] MEDS ORDERED: Albuterol 2.5 MG/3 ML NEB.SOL* (0.083%) INH ONE (19:02)
[2019-09-25] MEDS ORDERED: Acetaminophen TAB* 325 MG PO ONE ×2 (19:02→19:20)
[2019-09-25 19:25] LABS: Influenza A Molecular NEGATIVE (Negative); Influenza B Molecular NEGATIVE (Negative)
--- NOTE | 2019-09-25 19:30 | UC ---
Respiratory Complaint HPI - HPI Summary HPI Summary: 89 yo female resident of [facility] noted to have fever today cough x a couple of days some MCMILLAN mild increase confusion No CP or SOB hx COPD - History of Current Complaint Chief Complaint: UCRespiratory Stated Complaint: COUGH/FEVER/CONGESTION Time Seen by Provider: 09/25/19 18:41 Hx Obtained From: Patient, Family/Pumpman - daughter Onset/Duration: Gradual Onset, Lasting Weeks, Worse Since - today Timing: Constant Severity Initially: Mild Severity Currently: Moderate Pain Intensity: 4 Pain Scale Used: 0-10 Numeric Character: Cough: Nonproductive Aggravating Factors: Nothing Alleviating Factors: Nothing Associated Signs And Symptoms: Positive: Fever, Chills, Wheezing, Nasal Congestion - Allergies/Home Medications Allergies/Adverse Reactions: Allergies Allergy/AdvReac Type Severity Reaction Status Date / Time Influenza Virus Vaccines Allergy Shortness Verified 09/25/19 18:45 of Breath PMH/Surg Hx/FS Hx/Imm Hx Previously Healthy: Yes Endocrine History: Dyslipidemia Cardiovascular History: Hypertension Respiratory History: COPD - Surgical History Surgical History: None - Family History Known Family History: Positive: Non-Contributory - Social History Alcohol Use: None Substance Use Type: None Smoking Status (MU): Former Smoker Type: Cigarettes Have You Smoked in the Last Year: No When Did the Patient Quit Smoking/Using Tobacco: 2002 Review of Systems All Other Systems Reviewed And Are Negative: Yes Constitutional: Positive: Fever, Chills, Fatigue Skin: Positive: Negative Eyes: Positive: Negative ENT: Positive: Nasal Discharge, Sinus Congestion Respiratory: Positive: Cough Cardiovascular: Positive: Negative Gastrointestinal: Positive: Negative Genitourinary: Positive: Negative Motor: Positive: Negative Neurovascular: Positive: Negative Musculoskeletal: Positive: Negative Neurological: Positive: Negative Psychological: Positive: Negative Physical Exam Triage Information Reviewed: Yes Appearance: Well-Appearing, No Pain Distress, Well-Nourished Vital Signs: Initial Vital Signs Temp 101.3 F 09/25/19 18:46 Pulse 93 09/25/19 18:46 Resp 42 09/25/19 18:46 BP 116/56 09/25/19 18:46 Pulse Ox 94 09/25/19 18:46 Vital Signs Reviewed: Yes Eyes: Positive: Conjunctiva Clear ENT: Positive: Uvula midline. Negative: Hearing grossly normal, Nasal congestion, Nasal drainage, Tonsillar swelling, Tonsillar exudate, Trismus, Muffled voice, Dental tenderness Dental: Negative: Abscess @ Neck: Positive: Supple, Nontender, No Lymphadenopathy Respiratory: Positive: No respiratory distress, No accessory muscle use, Wheezing Cardiovascular: Positive: RRR, No Murmur Musculoskeletal: Positive: ROM Intact, No Edema Neurological: Positive: Alert Psychological Exam: Normal Skin Exam: Normal Diagnostics - Laboratory Lab Results: influenza (-) - Radiology No standard instances Radiology Interpretation Completed By: ED Physician Summary of Radiographic Findings: NAD, JARED Re-Evaluation - Re-Evaluation Second Eval Re-Evaluation Time: 19:33 Change: Unchanged - still wheezing Respiratory Course/Dx - Course Course Of Treatment: d/w Dr. Myles to [facility] ER via POV (daughter driving) - Differential Dx/Diagnosis Provider Diagnosis: Febrile illness, acute, COPD exacerbation Discharge ED - Sign-Out/Discharge Documenting (check all that apply): Patient Departure All imaging exams completed and their final reports reviewed: No - Discharge Plan Condition: Guarded Disposition: HOME-RECOMMEND TO ED Referrals: Piyush Busch MD [Primary Care Provider] - - Billing Disposition and Condition Condition: GUARDED Disposition: Home-Recommend to ED
== END 2019-09-25 20:12 | disposition home health service (06) ==
LOC: UCCORT 18:31
DX: J44.1 Chronic obstructive pulmonary disease with (acute) exacerbation (principal); R50.9 Fever, unspecified; I10 Essential (primary) hypertension; R09.81 Nasal congestion; R53.83 Other fatigue; Z88.7 Allergy status to serum and vaccine; Z87.891 Personal history of nicotine dependence
CPT/HCPCS: 71046; 99213; A9270-GY; G0463